=== PATIENT | male | born 1965 | race Caucasian/White ===

== ENCOUNTER 2017-03-02 11:33 | Outpatient (CLI) | payer OTHER ==
[~2017-03-02] VITALS: Ht 180.3 cm; Wt 94.8 kg
[~2017-03-02 11:33] MED LIST: ALBU17IN INH; FISH1000 PO; NEXI20CA PO; SIMV20TA2 PO; SYMB80INH INH; VITA100067 PO
[2017-03-02] MEDS ORDERED: NS 1,000 ML IV ONE (12:00)
[2017-03-02] MEDS ORDERED: LIDOCAINE 2% INJ 100 MG/5 ML SDV (FOR ANES.) As Ordered ONE (12:18)
[2017-03-02] MEDS ORDERED: PROPOFOL 200 MG/20 ML VIAL As Ordered ONE (12:18)
--- NOTE | 2017-03-02 12:42 | ROOR ---
Patient Name: Michael Monterroso Procedure Date: 03/02/2017 12:15 PM Date of : 1965 Age: 51 Room: [facility] Gender: Male Note Status: Finalized Procedure: Colonoscopy Indications: Screening for colorectal malignant neoplasm Providers: Mamadou QUINN MD Referring MD: Katie ARAGON DO Requestdileep Provider: Medicines: Monitored Anesthesia Care Complications: No immediate complications. Procedure: Pre-Anesthesia Assessment: - The heart rate, respiratory rate, oxygen saturations, blood pressure, adequacy of pulmonary ventilation, and response to care were monitored throughout the procedure. The Colonoscope was introduced through the anus and advanced to the cecum, identified by appendiceal orifice and ileocecal valve. The colonoscopy was performed without difficulty. The patient tolerated the procedure well. The quality of the bowel preparation was good. Findings: The perianal and digital rectal examinations were normal. (Exam: Complete, Prep: Good or Excellent.) Three sessile polyps were found in the splenic flexure (4mm), hepatic flexure (5mm) and ascending colon (6-7 mm, flat). The polyps were 4 to 6 mm in size. These polyps were removed with a piecemeal technique using a cold snare. Resection and retrieval were complete. Multiple small-mouthed diverticula were found in the sigmoid colon. The exam was otherwise without abnormality on direct and retroflexion views. Impression: - (Exam: Complete, Prep: Good or Excellent.) - Three 4 to 6 mm polyps at the splenic flexure, hepatic flexure and ascending colon, removed piecemeal using a cold snare. Resected and retrieved. - Mild diverticulosis and small internal hemorrhoids. - The colon examination was otherwise normal on direct and retroflexion views. Recommendation: - Repeat colonoscopy in 3 years for surveillance. - Telephone endoscopist for pathology results in 2 weeks. Mamadou Quinn MD Mamadou QUINN MD 03/02/2017 12:41:32 PM This report has been signed electronically. Number of Addenda: 0 Note Initiated On: 03/02/2017 12:15 PM Estimated Blood Loss: Estimated blood loss: none.
[2017-03-02 13:03] VITALS: BP 136/87
== END 2017-03-02 13:05 | disposition home or self-care (01) ==
LOC: M OPP 11:33
PROVIDERS: ATTEND Internal Medicine Gastroenterology
DX: Z12.11 Encounter for screening for malignant neoplasm of colon (principal); D12.3 Benign neoplasm of transverse colon; D12.2 Benign neoplasm of ascending colon; K57.30 Diverticulosis of large intestine without perforation or abscess without bleeding; K64.8 Other hemorrhoids; R07.89 Other chest pain; E78.5 Hyperlipidemia, unspecified; K21.9 Gastro-esophageal reflux disease without esophagitis; R12 Heartburn; J44.9 Chronic obstructive pulmonary disease, unspecified; G47.8 Other sleep disorders; R06.83 Snoring; F17.290 Nicotine dependence, other tobacco product, uncomplicated; Z79.899 Other long term (current) drug therapy; Z80.9 Family history of malignant neoplasm, unspecified

== ENCOUNTER → 2017-06-22 | Outpatient (CLI) | payer OTHER ==
--- NOTE | 2017-06-26 13:41 | SLEEPCENT ---
DATE OF STUDY: 06/22/2017 ORDERED BY: Aleisha Mojica Nocturnal polysomnography was performed for assessment of sleep physiology in this patient with a history of excessive somnolence and nonrestorative sleep. 8 hours and 26 minutes of data were reviewed. There were 429 minutes of sleep identified. Sleep latency was normal at 11 minutes. Rapid eye movement (REM) latency was normal at 66 minutes. Sleep architecture showed some fragmentation. Sleep progression was well maintained. There were 5 REM cycles noted. Overall sleep efficiency was 86.2%. The patient's electrocardiogram (EKG) showed a sinus rhythm with an average heart rate of 68 beats per minute. Rate variability was seen 60 to 80 beats per minute. Electroencephalogram (EEG) showed reasonably normal waveforms for awake and sleep. There were 67 respiratory events identified of 10 seconds in duration or greater for an apnea-hypopnea index of 9.4. The events were primarily obstructive, more frequent in the supine postured, but not exclusive to that position. Arousals from respiratory events occurred 4.3 times per hour and oxygen desaturations were seen to 88%. There was also some limb activity. Limb movement arousal index was borderline at 5.9. IMPRESSION: Obstructive sleep apnea syndrome (G47.33), apnea-hypopnea index 9.4. RECOMMENDATION: The patient should be encouraged to return to the sleep disorder center for pressure therapy. In the interim, alcohol and sedative avoidance should be practiced and caution exercised during the operation of motor vehicles.
== END ==
LOC: M SLEEP 19:18
PROVIDERS: ATTEND Nurse Practitioner Adult Health
DX: G47.33 Obstructive sleep apnea (adult) (pediatric) (principal)

== ENCOUNTER → 2017-08-17 | Outpatient (CLI) | payer OTHER | LOC: M SLEEP 19:05 | DX: G47.33 Obstructive sleep apnea (adult) (pediatric) (principal) | CPT/HCPCS: 95811 ==

== ENCOUNTER 2023-11-05 09:30 | Day surgery (SDC) | payer OTHER ==
[~2023-11-05] VITALS: Ht 180.3 cm; Wt 98.0 kg
[2023-11-05] MEDS: NS 1,000 ML IV ONE (06:00)
[~2023-11-05 09:30] MED LIST changes: +ATOR1TAB21 PO; +LIDOCAINE 2% 100MG/5ML SDV (FOR ANES.) As Ordered ONE; -SIMV20TA2 PO; +SIMV20TA22 PO; +VITA100093 PO; +propofoL 200 MG/20 ML VIAL As Ordered ONE
[2023-11-05 10:30] VITALS: TEMP 98.2
[2023-11-05 10:47] VITALS: BP 154/74; O2SAT 98
== END 2023-11-05 11:04 | disposition home or self-care (01) ==
LOC: M OPP 09:30
PROVIDERS: ATTEND Internal Medicine Gastroenterology
DX: Z12.11 Encounter for screening for malignant neoplasm of colon (principal); Z86.010 Personal history of colon polyps; D12.2 Benign neoplasm of ascending colon; K64.8 Other hemorrhoids; K57.30 Diverticulosis of large intestine without perforation or abscess without bleeding; G47.30 Sleep apnea, unspecified; F17.220 Nicotine dependence, chewing tobacco, uncomplicated; Z79.02 Long term (current) use of antithrombotics/antiplatelets; Z79.899 Other long term (current) drug therapy